=== PATIENT | female | born 1960 | race Asian ===

== ENCOUNTER 2017-09-15 01:46 | Outpatient (CLI) | payer OTHER ==
[~2017-09-15 01:46] MED LIST: AMBIEN5 MG PO; AMLO2.5T PO; CEFDINIR300 MG OR; CYCL10TA35 PO; DOCU100C10 PO; HYDR10TA47 PO; LOPRESSOR100 MG PO; MACROBID100 MG OR; MEGE40TA32 PO; METRONIDAZOL500 MG PO; POT CHLORIDE10 MEQ PO; SUPER B COMP PO; XELODA500 MG PO
[2017-09-15] MEDS ORDERED: OMEPRAZOLE40 MG OR (02:13)
[2017-09-15] MEDS ORDERED: HYDRALAZINE50 MG PO (02:14)
[2017-09-15] MEDS ORDERED: XARELTO20 MG OR (02:14)
[2017-09-15] MEDS ORDERED: CYCL10TA35 PO (02:14)
[2017-09-15] MEDS ORDERED: DRONABINOL5 MG PO (02:16)
[2017-09-15] MEDS ORDERED: VITAMIN D32000 UNIT OR (02:17)
== END 2017-09-15 01:53 | disposition short-term general hospital (02) ==
LOC: AMB 01:46
DX: R10.84 Generalized abdominal pain (principal)
CPT/HCPCS: A0425; A0427

== ENCOUNTER 2017-09-15 02:08 | Emergency (ER) | payer OTHER ==
[~2017-09-15] VITALS: Ht 167.6 cm; Wt 76.2 kg
[2017-09-15] MEDS ORDERED: OMEPRAZOLE40 MG OR (02:13)
[2017-09-15] MEDS ORDERED: HYDRALAZINE50 MG PO (02:14)
[2017-09-15] MEDS ORDERED: XARELTO20 MG OR (02:14)
[2017-09-15] MEDS ORDERED: CYCL10TA35 PO (02:14)
[2017-09-15] MEDS ORDERED: DRONABINOL5 MG PO (02:16)
[2017-09-15] MEDS ORDERED: VITAMIN D32000 UNIT OR (02:17)
[2017-09-15 02:49] LABS: PLATELET COUNT 239 K/uL (152-353)
[2017-09-15 05:18] VITALS: BP 169/55; TEMP 97.8
== END 2017-09-15 05:19 | disposition home or self-care (01) ==
LOC: ED 02:08
DX: N20.0 Calculus of kidney (principal)
CPT/HCPCS: 36415; 80053; 81000; 85027; 96374; 96375; 96376; 99284; J1170; J2405

== ENCOUNTER 2017-09-17 13:43 | Outpatient (CLI) | payer OTHER ==
[~2017-09-17 13:43] MED LIST changes: +DRONABINOL5 MG PO; +HYDRALAZINE50 MG PO; +OMEPRAZOLE40 MG OR; +VITAMIN D32000 UNIT OR; +XARELTO20 MG OR
== END 2017-09-17 20:24 | disposition home or self-care (01) ==
LOC: LABW 13:43
DX: Z79.01 Long term (current) use of anticoagulants (principal); R19.5 Other fecal abnormalities; R10.84 Generalized abdominal pain; Z51.81 Encounter for therapeutic drug level monitoring
CPT/HCPCS: 82705; 83631; 87015; 87045; 87205; 87324; 87328; 87329; 87449; 87899

== ENCOUNTER 2018-03-12 10:35 | Outpatient (CLI) | payer OTHER | END 2018-03-12 22:06 | disposition home or self-care (01) | LOC: LABW 10:35 | PROVIDERS: Family Medicine | DX: E78.5 Hyperlipidemia, unspecified (principal); I10 Essential (primary) hypertension | CPT/HCPCS: 36415; 80061; 84439; 84443 ==

== ENCOUNTER 2018-05-02 13:06 | Outpatient (CLI) | payer OTHER ==
[2018-05-02] MEDS ORDERED: CAPECITABINE500 MG PO ×4 (17:15)
[2018-05-02] MEDS ORDERED: MONT10TA PO ×2 (17:16)
[2018-05-02] MEDS ORDERED: CLON0.1T16 PO ×2 (17:16)
[2018-05-02] MEDS ORDERED: HYDR10TA47A PO ×2 (17:18)
[2018-05-02] MEDS ORDERED: MOBIC15 MG PO ×2 (17:18)
== END 2018-05-02 13:10 | disposition short-term general hospital (02) ==
LOC: AMB 13:06
DX: R06.02 Shortness of breath (principal)
CPT/HCPCS: A0425; A0427

== ENCOUNTER 2018-05-02 13:16 | Inpatient (IN) | payer OTHER ==
[2018-05-02] VITALS (7 sets, daily range): BP systolic 151–208; BP diastolic 80–105; TEMP 97.9–98.3; Ht 167.6 cm; Wt 72.3 kg
[~2018-05-02] VITALS: Ht 167.6 cm; Wt 72.3 kg
[2018-05-02 14:01] LABS: PLATELET COUNT 209 K/uL (152-353)
[2018-05-02 16:53] LABS: PARTIAL THROMBOPLASTIN TIME 23.7 SECONDS (24.5-33.6)
[2018-05-02] MEDS ORDERED: CAPECITABINE500 MG PO ×4 (17:15)
[2018-05-02] MEDS ORDERED: MONT10TA PO ×2 (17:16)
[2018-05-02] MEDS ORDERED: CLON0.1T16 PO ×2 (17:16)
[2018-05-02] MEDS ORDERED: HYDR10TA47A PO ×2 (17:18)
[2018-05-02] MEDS ORDERED: MOBIC15 MG PO ×2 (17:18)
[2018-05-03] VITALS: BP 159/95; TEMP 97
[2018-05-03 04:00] VITALS: BP 155/95; TEMP 98
[2018-05-03 08:05] VITALS: BP 157/92; TEMP 98
[2018-05-03 11:08] LABS: PLATELET COUNT 206 K/uL (152-353)
[2018-05-03 12:03] VITALS: TEMP 97.9
[2018-05-03 16:18] VITALS: BP 133/78; TEMP 98.7
[2018-05-03 20:12] VITALS: BP 148/78; TEMP 97.6
[2018-05-04] VITALS: BP 138/82; TEMP 98.3
[2018-05-04 04:00] VITALS: BP 140/83; TEMP 97.8
[2018-05-04 05:35] LABS: PLATELET COUNT 190 K/uL (152-353)
[2018-05-04 06:45] LABS: POTASSIUM 3.3 mmol/L (3.6-5.2)
[2018-05-04 08:06] VITALS: BP 139/85; TEMP 98.4
[2018-05-04 12:04] VITALS: BP 139/70; TEMP 97.9
[2018-05-04 16:07] VITALS: BP 104/67; TEMP 97.7
[2018-05-04 20:02] VITALS: BP 131/81; TEMP 98.1
[2018-05-05] VITALS (7 sets, daily range): BP systolic 126–193; BP diastolic 65–88; TEMP 97.8–98.7
[2018-05-05 05:17] LABS: PLATELET COUNT 193 K/uL (152-353)
[2018-05-06 04:28] VITALS: BP 137/78; TEMP 97.9
[2018-05-06 05:25] LABS: POTASSIUM 4.8 mmol/L (3.6-5.2)
[2018-05-06 05:55] LABS: PLATELET COUNT 201 K/uL (152-353)
[2018-05-06 08:00] VITALS: BP 130/75; TEMP 98
[2018-05-06] MEDS ORDERED: LISI10TA11 PO ×2 (10:46)
[2018-05-06] MEDS ORDERED: CARV6.25 PO ×2 (10:46)
== END 2018-05-06 12:07 | disposition home or self-care (01) | DRG 292 ==
LOC: ED 13:16 → MED/SURG 15:33
PROVIDERS: Allergy & Immunology; Emergency Medicine; Family Medicine
DX: I50.9 Heart failure, unspecified (principal); E44.0 Moderate protein-calorie malnutrition; M62.838 Other muscle spasm; K21.9 Gastro-esophageal reflux disease without esophagitis; E83.42 Hypomagnesemia; E87.6 Hypokalemia; Z85.3 Personal history of malignant neoplasm of breast; I11.0 Hypertensive heart disease with heart failure
CPT/HCPCS: 36415; 36600; 80048; 80053; 82550; 82553; 82805; 83735; 83880; 84484; 85027; 85379; 85610; 85730; 93005; 94760; 96360; 99284; J1650; J1885; J1940; J3475; J3490

== ENCOUNTER 2018-05-15 09:48 | Outpatient (CLI) | payer OTHER ==
[~2018-05-15 09:48] MED LIST changes: +CAPECITABINE500 MG PO; +CARV6.25 PO; +CLON0.1T16 PO; +HYDR10TA47A PO; +LISI10TA11 PO; +MOBIC15 MG PO; +MONT10TA PO
== END 2018-05-15 19:26 | disposition home or self-care (01) ==
LOC: RESP 09:48
DX: I82.409 Acute embolism and thrombosis of unspecified deep veins of unspecified lower extremity (principal); I10 Essential (primary) hypertension
CPT/HCPCS: 93306

== ENCOUNTER 2018-07-09 10:30 | Outpatient (CLI) | payer OTHER ==
[2018-07-09] MEDS ORDERED: CLON0.1T16 PO (10:51)
[2018-07-09] MEDS ORDERED: XARELTO20 MG PO (10:54)
== END 2018-07-09 10:35 | disposition short-term general hospital (02) ==
LOC: AMB 10:30
DX: I31.4 Cardiac tamponade (principal)
CPT/HCPCS: 99284; A0425; A0427

== ENCOUNTER 2018-07-09 10:41 | Emergency (ER) | payer OTHER ==
[~2018-07-09] VITALS: Ht 167.6 cm; Wt 72.1 kg
[2018-07-09] MEDS ORDERED: CLON0.1T16 PO (10:51)
[2018-07-09] MEDS ORDERED: XARELTO20 MG PO (10:54)
[2018-07-09 11:26] LABS: PLATELET COUNT 237 K/uL (152-353)
[2018-07-09 11:31] LABS: POTASSIUM 3.6 mmol/L (3.6-5.2)
[2018-07-09 14:08] VITALS: BP 117/86; TEMP 98.6
== END 2018-07-09 14:08 | disposition short-term general hospital (02) ==
LOC: ED 10:41
PROVIDERS: Family Medicine
DX: R07.89 Other chest pain (principal); R79.89 Other specified abnormal findings of blood chemistry; I50.9 Heart failure, unspecified; R00.0 Tachycardia, unspecified
CPT/HCPCS: 80053; 82550; 82553; 83880; 84484; 85027; 93005; 96374; 96375; 99284; J2175; J2550

== ENCOUNTER 2018-09-24 08:38 | Outpatient (CLI) | payer OTHER ==
[~2018-09-24 08:38] MED LIST changes: +XARELTO20 MG PO
== END 2018-09-24 20:29 | disposition home or self-care (01) ==
LOC: NM 08:38
DX: R00.2 Palpitations (principal); I42.8 Other cardiomyopathies; I10 Essential (primary) hypertension
CPT/HCPCS: 93225; A9500; J2785

== ENCOUNTER 2018-10-14 11:43 | Outpatient (CLI) | payer OTHER ==
[2018-10-14 12:02] LABS: PLATELET COUNT 212 K/uL (152-353)
[2018-10-14 12:12] LABS: POTASSIUM 3.7 mmol/L (3.6-5.2)
== END 2018-10-14 19:39 | disposition home or self-care (01) ==
LOC: LABW 11:43
PROVIDERS: Specialist
DX: Z01.810 Encounter for preprocedural cardiovascular examination (principal); R93.1 Abnormal findings on diagnostic imaging of heart and coronary circulation
CPT/HCPCS: 36415; 80053; 85027

== ENCOUNTER 2018-10-16 12:06 | Outpatient (CLI) | payer OTHER ==
[2018-10-16 16:19] LABS: PLATELET COUNT 197 K/uL (152-353)
[2018-10-16 16:36] LABS: POTASSIUM 4.2 mmol/L (3.6-5.2)
== END 2018-10-16 23:40 | disposition home or self-care (01) ==
LOC: LABW 12:06
PROVIDERS: Internal Medicine Hematology & Oncology
DX: C50.811 Malignant neoplasm of overlapping sites of right female breast (principal); M85.80 Other specified disorders of bone density and structure, unspecified site
CPT/HCPCS: 36415; 80053; 85027

== ENCOUNTER 2021-10-13 12:22 | Emergency (ER) | payer OTHER ==
[~2021-10-13] VITALS: Ht 167.6 cm; Wt 73.0 kg
[2021-10-13 12:30] VITALS: TEMP 98.7
[2021-10-13 12:59] LABS: PLATELET COUNT 192 K/uL (152-353)
[2021-10-13 13:11] LABS: POTASSIUM 3.3 mmol/L (3.6-5.2)
[2021-10-13 13:16] LABS: PARTIAL THROMBOPLASTIN TIME 23.9 SECONDS (24.5-33.6)
[2021-10-13 14:30] VITALS: BP 153/91
== END 2021-10-13 15:00 | disposition short-term general hospital (02) ==
LOC: ED 12:22
PROVIDERS: Emergency Medicine
DX: I63.89 Other cerebral infarction (principal); G81.94 Hemiplegia, unspecified affecting left nondominant side; I21.4 Non-ST elevation (NSTEMI) myocardial infarction; I10 Essential (primary) hypertension; F17.210 Nicotine dependence, cigarettes, uncomplicated; Z86.73 Personal history of transient ischemic attack (TIA), and cerebral infarction without residual deficits
CPT/HCPCS: 80053; 81002; 82550; 84484; 85027; 85610; 85730; 93005; 99285

== ENCOUNTER 2022-12-25 11:48 | Outpatient (CLI) | payer OTHER | END 2022-12-25 23:25 | disposition home or self-care (01) | LOC: CT 11:48 | PROVIDERS: ATTEND Internal Medicine | DX: Z87.442 Personal history of urinary calculi (principal); R10.9 Unspecified abdominal pain; R31.9 Hematuria, unspecified ==